=== PATIENT | female | born 1940 | race Caucasian/White ===

== ENCOUNTER 2016-05-24 21:03 | Emergency (ER) | payer MEDICARE | END 2016-05-24 23:07 | disposition home or self-care (01) | LOC: ER 21:03 | DX: S82.002A Unspecified fracture of left patella, initial encounter for closed fracture (principal); S80.211A Abrasion, right knee, initial encounter; E11.9 Type 2 diabetes mellitus without complications; I10 Essential (primary) hypertension; E03.9 Hypothyroidism, unspecified; I25.10 Atherosclerotic heart disease of native coronary artery without angina pectoris; Z87.440 Personal history of urinary (tract) infections; Z90.49 Acquired absence of other specified parts of digestive tract; Z79.84 Long term (current) use of oral hypoglycemic drugs; W17.89XA Other fall from one level to another, initial encounter | CPT/HCPCS: 96372 ==

== ENCOUNTER 2016-07-29 16:09 | Observation (INO) | payer MEDICARE ==
[~2016-07-29] VITALS: Ht 152.4 cm; Wt 60.3 kg
== END 2016-07-31 13:45 | disposition home or self-care (01) ==
LOC: ER 16:09 → MED 20:39
PROVIDERS: ADMIT Internal Medicine
DX: R07.9 Chest pain, unspecified (principal); E11.65 Type 2 diabetes mellitus with hyperglycemia; I25.10 Atherosclerotic heart disease of native coronary artery without angina pectoris; I10 Essential (primary) hypertension; E78.5 Hyperlipidemia, unspecified; Z87.440 Personal history of urinary (tract) infections; Z79.01 Long term (current) use of anticoagulants; Z79.82 Long term (current) use of aspirin; Z79.84 Long term (current) use of oral hypoglycemic drugs; Z79.899 Other long term (current) drug therapy; E89.0 Postprocedural hypothyroidism; Z90.49 Acquired absence of other specified parts of digestive tract
CPT/HCPCS: 36415; 78452; 93017; 93306; 96360; 96372; G0378; J1650; J2785; Q9967